=== PATIENT | male | born 1955 | race Caucasian/White ===

== ENCOUNTER → 2019-06-29 16:15 | Outpatient (BNVA) | payer MEDICARE, SELFPAY | PROVIDERS: Family Provider Nurse Practitioner Family; PCP Nurse Practitioner Family; Visit Provider Nurse Practitioner Family | DX: I10 Essential (primary) hypertension (principal); E78.2 Mixed hyperlipidemia; M19.90 Unspecified osteoarthritis, unspecified site; E55.9 Vitamin D deficiency, unspecified | CPT/HCPCS: 80053; 80061; 82306; 85025 ==

== ENCOUNTER → 2019-07-21 16:11 | Outpatient (BNVA) | payer MEDICARE, SELFPAY | PROVIDERS: Family Provider Nurse Practitioner Family; PCP Nurse Practitioner Family; Visit Provider Nurse Practitioner Family | DX: I10 Essential (primary) hypertension (principal); R73.09 Other abnormal glucose; F41.9 Anxiety disorder, unspecified | CPT/HCPCS: 83036 ==

== ENCOUNTER → 2020-01-27 13:27 | Outpatient (BNVA) | payer MEDICARE, SELFPAY | PROVIDERS: Family Provider Nurse Practitioner Family; PCP Nurse Practitioner Family; Visit Provider Nurse Practitioner Family | DX: I10 Essential (primary) hypertension (principal); E55.9 Vitamin D deficiency, unspecified; F41.9 Anxiety disorder, unspecified; E34.9 Endocrine disorder, unspecified; R73.09 Other abnormal glucose | CPT/HCPCS: 80053; 80061; 82306; 82607; 83036; 84403; 84443; 85025 ==

== ENCOUNTER → 2020-03-21 12:54 | Outpatient (BNVA) | payer MEDICARE, SELFPAY | PROVIDERS: Family Provider Nurse Practitioner Family; PCP Nurse Practitioner Family; Referring Provider Nurse Practitioner Family; Visit Provider Dermatology | DX: D48.5 Neoplasm of uncertain behavior of skin (principal); L70.8 Other acne; L72.0 Epidermal cyst; L82.1 Other seborrheic keratosis; F17.220 Nicotine dependence, chewing tobacco, uncomplicated | CPT/HCPCS: 11102; 88304; 99203 ==

== ENCOUNTER → 2020-09-07 11:46 | Outpatient (BNVA) | payer MEDICARE, SELFPAY | PROVIDERS: Family Provider Nurse Practitioner Family; PCP Nurse Practitioner Family; Visit Provider Nurse Practitioner Family | DX: I10 Essential (primary) hypertension (principal); E55.9 Vitamin D deficiency, unspecified; F41.9 Anxiety disorder, unspecified; R73.03 Prediabetes; R73.09 Other abnormal glucose; E34.9 Endocrine disorder, unspecified | CPT/HCPCS: 80053; 80061; 82043; 82306; 83036; 84403; 85025 ==

== ENCOUNTER → 2021-02-15 10:00 | Outpatient (BNVA) | payer MEDICARE, SELFPAY | PROVIDERS: Family Provider Nurse Practitioner Family; PCP Nurse Practitioner Family; Visit Provider Nurse Practitioner Family | DX: F41.9 Anxiety disorder, unspecified (principal); I10 Essential (primary) hypertension; R73.03 Prediabetes; E34.9 Endocrine disorder, unspecified; E55.9 Vitamin D deficiency, unspecified; E78.5 Hyperlipidemia, unspecified | CPT/HCPCS: 80053; 80061; 82306; 82607; 83036; 84403; 85025 ==

== ENCOUNTER → 2021-07-17 15:39 | Outpatient (BNVA) | payer MEDICARE, SELFPAY | PROVIDERS: Family Provider Nurse Practitioner Family; PCP Nurse Practitioner Family; Visit Provider Nurse Practitioner Family | DX: Z20.822 Contact with and (suspected) exposure to COVID-19 (principal) | CPT/HCPCS: 87635 ==

== ENCOUNTER → 2022-03-10 17:10 | Outpatient (BNVA) | payer MEDICARE, SELFPAY | PROVIDERS: Family Provider Nurse Practitioner Family; PCP Nurse Practitioner Family; Visit Provider Nurse Practitioner Family | DX: I10 Essential (primary) hypertension (principal); E78.5 Hyperlipidemia, unspecified; K21.9 Gastro-esophageal reflux disease without esophagitis; R73.09 Other abnormal glucose; E34.9 Endocrine disorder, unspecified; E55.9 Vitamin D deficiency, unspecified; R63.4 Abnormal weight loss; R73.03 Prediabetes; M54.42 Lumbago with sciatica, left side; G89.29 Other chronic pain; J34.89 Other specified disorders of nose and nasal sinuses; N40.0 Benign prostatic hyperplasia without lower urinary tract symptoms | CPT/HCPCS: 80053; 80061; 82306; 82607; 83036; 83735; 84403; 84443; 85025 ==

== ENCOUNTER 2022-04-04 08:11 | Outpatient (CLI) | payer MEDICARE, SELFPAY ==
[2022-04-04] MEDS: iohexol 350 mg/mL 100 mL Btl PO (08:40)
[2022-04-04] MEDS: iohexol 350 mg/mL 100 mL Btl IV (08:42)
--- NOTE | 2022-04-04 09:30 | CT_ITS ---
WS: [id number] CT CHEST, ABDOMEN AND PELVIS WITH CONTRAST HISTORY: R63.4 - Abnormal weight loss TECHNIQUE: Contiguous 5 mm axial imaging performed through the chest, abdomen and pelvis with IV cont rast, oral contrast has been provided. Coronal and sagittal reformats chest. Coronal and sagittal ref ormats through the abdomen and pelvis. All CT scans at [facility] use at least one of these d ose optimization techniques: automated exposure control; mA and/or kV adjustment per patient size (in cludes targeted exams where dose is matched to clinical indication); or iterative reconstruction. CONTRAST: Omnipaque 350; 95 mL IV. DLP: 2217.88 mGy.cm COMPARISON: 12/10/[address]: Focal pleural scarring towards the apices. There is a micronodule measuring 2 mm LEFT upper lobe, image 25 of series 4. No mass or nodule or pneumonia. No pericardial or pleural effusions. No axillary, mediastinal or hilar lymphadenopathy. Mild atherosclerosis aorta. Normal size pulmonary art hernan. Small hiatal hernia. Mild soft tissue thickening at the GE junction. Nonspecific. Abdomen CT: Prior cholecystectomy. Liver is normal size. Mild central bile duct dilatation is probably on the basis of the cholecystectomy. No mass at the moore creatic head. Mild atrophy of the pancreas. Pancreatic duct is not dilated. Negative spleen and adren al glands. Bilateral renal hypodensities are too small to characterize. No solid renal mass. Bilatera l nonobstructing renal calculi. Mild atherosclerosis aorta. Minimally distended stomach with contrast. No small bowel obstruction or wall thickening. There is mi ld diffuse fecal constipation. No obstructing colon lesion is identified. The appendix is normal. Pelvic CT: No free fluid in the pelvis. The urinary bladder is well distended. Focal dilatation invol ving the distal LEFT ureter or bladder diverticulum. The ureter may enter the bladder diverticulum. N o enhancing masses within the bladder. Prostate gland is enlarged. There is a central low attenuation mass measuring 2.7 x 2.2 cm in the prostate gland. This was previously described in 2017 but increas ed in size. May be part of the prosthetic urethra. No osteoblastic or osteolytic bone lesions. Mild thoracolumbar scoliosis. Slight anterior wedging of L2. CT/CT chest abd pel w con* IMPRESSION: 1. No pulmonary mass or lymphadenopathy within the thorax. 2. Prior cholecystectomy. Very minimal bile duct dilatation is probably relate d to cholecystectomy. No pancreatic mass. 3. No ascites or adenopathy in the abdomen or pelvis. 4. No GI tract obstruction, mild diffuse constipation. 5. Cystic mass in the central prostate may be a prosthetic cyst or dilated pro static urethra. Prostate gland is enlarged. This cyst was present in 2017 but i ncreased slightly in size.
== END 2022-04-04 08:12 | disposition home or self-care (01) ==
PROVIDERS: Family Provider Nurse Practitioner Family; PCP Nurse Practitioner Family; Visit Provider Nurse Practitioner Family
DX: R63.4 Abnormal weight loss (principal); K59.00 Constipation, unspecified; N40.0 Benign prostatic hyperplasia without lower urinary tract symptoms; Z90.49 Acquired absence of other specified parts of digestive tract
CPT/HCPCS: 71260; 74177

== ENCOUNTER 2022-06-19 14:48 | Outpatient (CLI) | payer MEDICARE, SELFPAY ==
[2022-06-19 16:02] LABS: PSA Screen - Urology 1.95 ng/mL (0-4)
== END 2022-06-19 14:49 | disposition home or self-care (01) ==
LOC: LAB 14:49
PROVIDERS: Family Provider Nurse Practitioner Family; PCP Nurse Practitioner Family; Visit Provider Urology
DX: Z12.5 Encounter for screening for malignant neoplasm of prostate (principal); N42.83 Cyst of prostate; N40.1 Benign prostatic hyperplasia with lower urinary tract symptoms; N13.8 Other obstructive and reflux uropathy; K59.09 Other constipation
CPT/HCPCS: 51741; 51798; 81003; 99203; G0103

== ENCOUNTER 2022-10-06 16:47 | Outpatient (CLI) | payer MEDICARE, SELFPAY ==
--- NOTE | 2022-10-06 | XR_ITS ---
WS: [id number] Lumbar spine with flexion, extension, and neutral lateral, 10/06/2022 Clinical Data: VERTEBROGENIC LOW PBACK PAIN Comparison: None. Findings: No compression fractures or subluxation is seen. There is degenerative disc narrowing at all lumbar l evels except L3-L4.. No limitation of motion or subluxation is seen. Diffuse osteoporosis is present. There is calcification of the wall of the abdominal aorta but no ane urysm. XR/XR lumbar spine f/e only [id number] Impression: 1. Multilevel degenerative disc narrowing. 2. Negative for limitation of motion on flexion or extension. 3. Osteoporosis.
== END 2022-10-06 16:48 | disposition home or self-care (01) ==
PROVIDERS: PCP Nurse Practitioner Family; Visit Provider Anesthesiology Pain Medicine
DX: M54.50 Low back pain, unspecified (principal)
CPT/HCPCS: 72120

== ENCOUNTER 2022-10-24 11:54 | Outpatient (CLI) | payer MEDICARE, SELFPAY ==
--- NOTE | 2022-10-24 12:20 | CT_ITS ---
WS: [id number] CT LUMBAR SPINE TECHNIQUE: Noncontrast CT of the lumbar spine with coronal and sagittal reformatted images. CLINICAL INFORMATION: VERTEBROGENIC LOW BACK PAIN COMPARISON: None. DLP: 496.[address] scans at [facility] use at least one of these dose optimization techniques: automated e xposure control; mA and/or kV adjustment per patient size (includes targeted exams where dose is matc hed to clinical indication); or iterative reconstruction. FINDINGS: Mild lumbar curve. Moderate spondylitic changes. Disc space narrowing worse at L2-L3 with disc desicc ation. Mild compression deformity superior endplate L2 unchanged since April 04, 2022. Grade 1 ante rolisthesis L5 on S1 with chronic spondylolysis.. L1-L2: Mild disc osteophytic ridging. Mild bilateral foraminal narrowing. Moderate facet arthropathy. Spinal canal is patent. L2-L3: Disc desiccation. Moderate facet arthropathy. Spinal canal and foramen are patent. L3-L4: Minimal disc bulging. Moderate facet arthropathy. Mild RIGHT and no significant LEFT foraminal narrowing. L4-L5: Disc osteophyte complex endplate ridging. Narrowing of the RIGHT subarticular recess. Mild RIG HT and no LEFT foraminal narrowing. Moderate to advanced facet arthropathy. L5-S1: Grade 1 anterolisthesis. Disc osteophyte complex with slight effacement of ventral thecal sac. Spinal canal is patent. Foramen are patent. Moderate facet arthropathy with spondylolysis. Adrenal glands are normal. Slightly aneurysmal infrarenal abdominal aorta measuring 2.4 x 2.4 CM. Visualized pelvic bony structures: Normal. Paravertebral soft tissues: Normal. CT/CT lumbar spine wo con* [id number] IMPRESSION: 1. Mild lumbar curve. No acute compression. Chronic mild compression superior endplate L2 unchanged since April 04, 2022. 2. Grade 1 anterolisthesis L5 on S1 with chronic spondylolysis. 3. Disc osteophyte complex L4-L5 with impingement RIGHT subarticular recess an d traversing RIGHT L5 nerve root. Mild RIGHT L4-L5 foraminal narrowing. Moderat e facet arthropathy is level. 4. Mild RIGHT L3-L4 foraminal narrowing with moderate facet arthropathy. 5. Mild bilateral L1-L2 foraminal narrowing. 6. Slightly aneurysmal infrarenal abdominal aorta measuring 2.4 x 2.4 CM.
== END 2022-10-24 11:55 | disposition home or self-care (01) ==
PROVIDERS: PCP Nurse Practitioner Family; Visit Provider Nurse Practitioner
DX: M54.51 Vertebrogenic low back pain (principal); M43.8X6 Other specified deforming dorsopathies, lumbar region; M47.817 Spondylosis without myelopathy or radiculopathy, lumbosacral region; M47.816 Spondylosis without myelopathy or radiculopathy, lumbar region
CPT/HCPCS: 72131

== ENCOUNTER 2022-11-15 19:21 | Emergency (ER) | payer MEDICARE, SELFPAY ==
[2022-11-15 19:38] VITALS: BP 195/84; PULSE 82; RESP 18; TEMP 36.7; O2SAT 98; BMI 26.3
--- NOTE | 2022-11-15 19:45 | ED_ITS ---
HPI - Abdominal Pain General: Chief Complaint: Abdominal Pain Stated Complaint: left flank pain Time Seen by Provider: 11/15/22 19:32 Source: patient Mode of arrival: ambulatory Limitations: no limitations History of Present Illness: 67-year-old male states he has been having left flank pain today started suddenly states it severe in nature radiates to his groin he states he had a kidney stone 20 years ago and this feels similar he denies any worsening proving factors states pain is currently 9 out of 10 he had no nausea vomiting denies any dysuria. Associated Symptoms: Denies chills, diarrhea, dysuria, fever(s), nausea and vomiting Review of Systems Const: Denies: fever(s) or chills ENMT: Denies: throat pain or dental pain Card: Denies: chest pain Resp: Denies: dyspnea GI: Denies: abdominal pain, nausea, vomiting or diarrhea : Reports: flank pain; Denies: dysuria Musc: Denies: neck pain or back pain Skin/Breast: Denies: rash Neuro: Denies: headache(s) PFSH ED PFSH: Medical History Anxiety B12 deficiency Chronic bilateral low back pain with left-sided sciatica Chronic constipation Chronic pain syndrome Drug-seeking behavior Dyslipidemia Gastro-esophageal reflux disease without esophagitis Helicobacter pylori antibody positive Hx of cardiac murmur Hypertension Overweight Testosterone deficiency Vitamin D deficiency Surgical History Hx of cholecystectomy Hx of colonoscopy Hx of hernia repair Family History Family/Other Dementia CAD (coronary artery disease) Cancer Mother , at age 69 Cancer Lung Father , at age 64 CAD (coronary artery disease) Social History Smoking and tobacco status: current every day smoker Second hand smoke exposure: No Alcohol intake: never Substance/Drug Use: never Caregiver/support person: Yes Lives independently: Yes Household members: spouse Marital status: Current occupational status: disabled Current gender identity: Male Special lorri needs: No Agree to transfusion: Yes Physical Exam Const: COMMON NORMALS: patient oriented x3 and healthy appearing GENERAL APPEARANCE: in distress HENMT: COMMON NORMALS: normocephalic and atraumatic HEAD & SCALP: normocephalic and atraumatic Eye: COMMON NORMALS: conjunctivae normal CONJUNCTIVA: Yes conjunctivae normal Neck/C-Spine: COMMON NORMALS: full ROM and supple Chest: COMMONS NORMALS: normal inspection of the chest and normal palpation of entire chest wall Resp: COMMON NORMALS: normal respiratory effort, No retractions, No use of accessory muscles and clear to auscultation bilaterally AUSCULTATION: clear to auscultation bilaterally Cardio: COMMON NORMALS: regular rate, regular rhythm and No murmurs present (Cardio) RATE: regular rate RHYTHM: regular rhythm GI: COMMON NORMALS: Normal to inspection, nondistended, normoactive bowel sounds present, Soft to palpation, non-tender and no masses PALPATION: Yes Soft to palpation : COMMON NORMALS: Yes no CVA tenderness BLADDER/KIDNEY EXAM: Yes no CVA tenderness Back/Pelvis: COMMON NORMALS: no CVA tenderness Extremity: COMMON NORMALS: normal to inspection and full ROM Neuro: COMMON NORMALS: patient oriented x3, moves all extremities and no focal motor deficits Psych: COMMON NORMALS: mental status grossly normal, Normal thought process present and cooperative THOUGHT PROCESS: Normal thought process present Skin: COMMON NORMALS: no rashes or lesions noted and no wounds GENERAL SKIN EXAM: no rashes or lesions noted Course Vital Signs: Vital signs: Vital Signs Temperature 98.0 F 11/15/22 19:38 Pulse Rate 68 11/15/22 22:42 Respiratory Rate 16 11/15/22 22:42 Blood Pressure 197/83 11/15/22 22:42 Pulse Oximetry 97 11/15/22 22:42 Oxygen Delivery Me thod Room Air 11/15/22 21:12 MDM - Abdominal Pain Medical Decision Making 67-year-old patient presents with flank pain he does have a kidney stone no signs of urinary tract infection pain is much improved here. We will place him on [place] along with Flomax he is to follow-up with urology he is return if worsening he understands agrees Medical Records I reviewed the patient's medical records. Lab Data I reviewed the patient's lab results. 11/15/22 19:47 11/15/22 19:47 Labs/Radiology: Radiology Impressions Abdomen/Pelvis CT 11/15/22 20:04 IMPRESSION: 1. A 5 mm partially obstructive calculus in the mid left ureter. 2. Several additional nonobstructive renal calculi as large as 4 mm. 3. A small sliding hiatal hernia. 4. Focal ectasia of the distal infrarenal abdominal aorta measuring 2.3 cm. 5. Mild fecal stasis throughout the colon. 6. Left bladder diverticulum near the ureterovesical junction. COMMENTS: Consistent with the [employer]'s Incidental Findings Committee white paper (J Am Caleb Radiol 2018): Any incidental renal lesion less than 1 cm or classified as too small to characterize, or any incidental cystic renal lesion characterized as simple-appearing, is likely benign. No follow-up imaging is recommended for these lesions per consensus recommendations based on imaging criteria. Laboratory Results WBC 17.4 10^3/uL (4.0-10.0) H 11/15/22 19:47 RBC 5.32 10^6/uL (4.1-5.3) H 11/15/22 19:47 Hgb 15.7 g/dL (11.7-16.6) 11/15/22 19:47 Hct 45.1 % (42.0-52.0) 11/15/22 19:47 MCV 84.8 fl (80-94) 11/15/22 19:47 MCH 29.5 pg (28.0-34.0) 11/15/22 19:47 MCHC 34.8 g/dL (30.0-36.0) 11/15/22 19:47 RDW 12.5 % (12.1-15.1) 11/15/22 19:47 Plt Count 337 10^3/cmm (130-400) 11/15/22 19:47 MPV 8.6 fL (7.4-10.4) 11/15/22 19:47 Neut % (Auto) 83.9 % 11/15/22 19:47 Lymph % (Auto) 7.1 % 11/15/22 19:47 [place]ble % (Auto) 6.5 % 11/15/22 19:47 Eos % (Auto) 0.1 % 11/15/22 19:47 Baso % (Auto) 0.2 % 11/15/22 19:47 Neut # (Auto) 14.56 10^3/uL (1.8-7.7) H 11/15/22 19:47 Lymph # (Auto) 1.2 10^3/uL (0.8-4.8) 11/15/22 19:47 Kimble # (Auto) 1.1 10^3/uL (0.2-0.9) H 11/15/22 19:47 Eos # (Auto) 0.0 10^3/uL (0.0-0.8) 11/15/22 19:47 Baso # (Auto) 0.0 10^3/uL (0.0-0.1) 11/15/22 19:47 Nucleated RBC % (auto) 0 % 11/15/22 19:47 Nucleated RBCs # 0.0 /100WBC 11/15/22 19:47 Sodium 135 mmol/L (136-145) L 11/15/22 19:47 Potassium 3.5 mmol/L (3.5-5.1) 11/15/22 19:47 Chloride 94 mmol/L (98-107) L 11/15/22 19:47 Carbon Dioxide 28 mmol/L (22-29) 11/15/22 19:47 Anion Gap 16.5 (5-19) 11/15/22 19:47 BUN 22 mg/dL (8-23) 11/15/22 19:47 Creatinine 1.0 mg/dL (0.7-1.2) 11/15/22 19:47 GFR Calculation 74.1 mL/min (90-130) L 11/15/22 19:47 Glucose 126 mg/dL (65-115) H 11/15/22 19:47 Calculated Osmolality 285 mOsm/kg (285-295) 11/15/22 19:47 Calcium 9.4 mg/dL (8.5-10.5) 11/15/22 19:47 Total Bilirubin 0.4 mg/dL (0.15-1.2) 11/15/22 19:47 AST 17 U/L (0-40) 11/15/22 19:47 ALT 14 U/L (0-41) 11/15/22 19:47 Alkaline Phosphatase 77 U/L (40-130) 11/15/22 19:47 Total Protein 7.4 g/dL (6.6-8.7) 11/15/22 19:47 Albumin 4.5 g/dL (3.5-5.2) 11/15/22 19:47 Globulin 2.9 g/dL (1.3-4.6) 11/15/22 19:47 Lipase 75 U/L (13-60) H 11/15/22 19:47 Urine Color Yellow (Yellow) 11/15/22 Unknown Urine Appearance Cloudy (CLEAR) A 11/15/22 Unknown Urine pH 5 (5-7) 11/15/22 Unknown Ur Specific [place] 1.025 (1.005-1.030) 11/15/22 Unknown Urine Protein 1+ (Negative) H 11/15/22 Unknown Urine Glucose (UA) Norm (Normal) 11/15/22 Unknown Urine Ketones 1+ (Negative) H 11/15/22 Unknown Urine Blood 3+ (Negative) H 11/15/22 Unknown Urine Nitrate Negative (Negative) 11/15/22 Unknown Urine Bilirubin Neg (Negative) 11/15/22 Unknown Urine Urobilinogen Norm mg/dL (Negative) 11/15/22 Unknown Ur Leukocyte Esterase Trace (Negative) H 11/15/22 Unknown Urine RBC >100 /hpf (0-2) H 11/15/22 Unknown Urine WBC 5-10 /hpf (0-5) H 11/15/22 Unknown Ur Squamous Epith Cells 0-4 /hpf (0-5) H 11/15/22 Unknown Calcium Oxalate Crystal 10-15 /hpf H 11/15/22 Unknown Amorphous Sediment Not Reportable 11/15/22 Unknown Urine Bacteria 1+ /hpf (NONE) H 11/15/22 Unknown Urine Mucus 3+ /hpf 11/15/22 Unknown Discharge Plan Discharge Patient Disposition: Home Clinical Impression: Kidney stone Condition: Stable Prescriptions: New hydrocodone-acetaminophen 5-325 mg tablet 1 tab PO Q6H PRN (Reason: pain) Qty: 14 0RF ondansetron 4 mg tablet,disintegrating 4 mg PO Q6H PRN (Reason: nausea and vomiting) Qty: 14 0RF Flomax 0.4 mg capsule 0.4 mg PO DAILY Qty: 5 0RF No Action fentanyl 100 mcg/hr patch 72 hour 1 patch TRANSDERMA Q72H cholecalciferol (vitamin D3) 25 mcg (1,000 unit) capsule 1,000 unit PO DAILY 90 Days Qty: 90 1RF lidocaine-epinephrine 1 %-1:100,000 solution 3 ml SUBCUT ONCE Qty: 3 0RF povidone-iodine [Betadine Swabsticks] 10 % swab 1 applic topical ONCE Qty: 1 0RF lidocaine (PF) 20 mg/mL (2 %) solution 20 mg IM ONCE Qty: 2 0RF oxycodone-acetaminophen [Percocet] 7.5-325 mg tablet 1 tab PO Q4H PRN albuterol sulfate [ProAir HFA] 90 mcg/actuation HFA aerosol inhaler 2 puff inhalation Q6H PRN (Reason: shortness of breath or wheezing) Qty: 8.5 0RF naloxone 0.4 mg/mL solution 0.4 mg SUBCUT Q2M PRN Rx Instructions: NTExceed 10 mg total dose/episode simvastatin 40 mg tablet See Rx Instructions .ROUTE .COMPLEX Qty: 90 1RF Dose Instruction: TAKE 1 TABLET BY MOUTH DAILY Rx Instructions: TAKE 1 TABLET BY MOUTH DAILY testosterone cypionate 100 mg/mL oil 150 mg IM .every other week Qty: 10 1RF acyclovir 200 mg capsule 200 mg PO BID PRN (Reason: blisters) 7 Days Qty: 14 2RF tamsulosin 0.4 mg capsule See Rx Instructions .ROUTE .COMPLEX Qty: 90 0RF Dose Instruction: TAKE 1 CAPSULE BY MOUTH DAILY Rx Instructions: TAKE 1 CAPSULE BY MOUTH DAILY benazepril 40 mg tablet See Rx Instructions .ROUTE .COMPLEX Qty: 30 0RF Dose Instruction: TAKE 1 TABLET BY MOUTH DAILY Rx Instructions: TAKE 1 TABLET BY MOUTH DAILY omeprazole 40 mg capsule,delayed release(DR/EC) See Rx Instructions .ROUTE .COMPLEX Qty: 90 1RF Dose Instruction: TAKE 1 CAPSULE BY MOUTH DAILY Rx Instructions: TAKE 1 CAPSULE BY MOUTH DAILY Discharge Orders: Discharge ED (Routine); Ordered 11/15/22 Ordered By: Iban Patterson Referrals: Daksha Ayala FNP [Primary Care Provider] - Discharge Diet: Advance as tolerated Discharge Activity: Resume usual activity Patient Instructions: Kidney Stones (ED), Opioid Safety Coding Level of Care Code ED Project Assistant for Carmen Trivedi
[2022-11-15 19:55] LABS: Basophils % 0.2 %; Eosinophils % 0.1 %; Hematocrit 45.1 % (42.0-52.0); Hemoglobin 15.7 g/dL (11.7-16.6); Lymphocytes # 1.2 10^3/uL (0.8-4.8); Lymphocytes % 7.1 %; Mean Corpuscular HGB Conc 34.8 g/dL (30.0-36.0); Mean Corpuscular Hemoglobin 29.5 pg (28.0-34.0); Mean Corpuscular Volume 84.8 fl (80-94); Mean Platelet Volume 8.6 fL (7.4-10.4); Monocytes # 1.1 10^3/uL (0.2-0.9); Monocytes % 6.5 %; Neutrophils # 14.56 10^3/uL (1.8-7.7); Neutrophils % 83.9 %; Nucleated Red Blood Cells % 0 %; Platelet Count 337 10^3/cmm (130-400); Red Blood Count 5.32 10^6/uL (4.1-5.3); Red Cell Distribution Width 12.5 % (12.1-15.1); White Blood Count 17.4 10^3/uL (4.0-10.0)
[2022-11-15 20:00] VITALS: PULSE 74; O2SAT 93
--- NOTE | 2022-11-15 20:04 | CTR_ITS ---
PROCEDURE INFORMATION: Exam: CT Abdomen And Pelvis With Contrast Exam date and time: 11/15/2022 8:15 PM Age: 67 years old Clinical indication: Abdominal pain; Generalized; Patient HX: Elevated wbc; Additional info: Abd pain TECHNIQUE: Imaging protocol: Computed tomography of the abdomen and pelvis with contrast. Radiation optimization: All CT scans at this facility use at least one of these dose optimization techniques: automated exposure control; mA and/or kV adjustment per patient size (includes targeted exams where dose is matched to clinical indication); or iterative reconstruction. Contrast material: OMNI 350; Contrast volume: 70 ml; Contrast route: INTRAVENOUS (IV); REPORTING DATA: Count of CT and Cardiac NM exams in prior 12 months: This patient has received 2 known CTs and 0 known cardiac nuclear medicine studies in the 12 months prior to the current study. COMPARISON: CT chest abdpel w/*[id number] 04/04/2022 9:51 AM RADIATION DOSE METRICS: Total DLP (mGy-cm): 708.84 FINDINGS: Lungs: The visualized lung bases show no consolidation. Diaphragm: There is a small sliding hiatal hernia. Liver: The liver is normal in size. There are no enhancing liver masses. Gallbladder and bile ducts: There has been a cholecystectomy. There is no evidence of biliary ductal dilation. Pancreas: The pancreas is normal. Spleen: The spleen is normal in size and density. Adrenal glands: The adrenal glands are normal. Kidneys and ureters: There is fullness of the left renal collecting system, down to the mid left ureter, where there is a partially obstructive 5 mm calculus. There are several bilateral nonobstructive renal calculi as large as 4 mm. There are multiple bilateral subcentimeter renal hypodensities, too small to characterize but likely cysts. Stomach and bowel: There is no evidence of small bowel or colonic obstruction. There is mild diffuse fecal stasis throughout the colon. Appendix: A normal appendix is identified. Intraperitoneal space: No free air. No significant fluid collection. Vasculature: There is moderate atherosclerotic calcification of the abdominal aorta and its branches. There is ectasia of the distal infrarenal abdominal aorta measuring 2.3 cm in diameter with mild mural thrombus. Lymph nodes: No enlarged retroperitoneal or mesenteric lymph nodes. Urinary bladder: The bladder is mostly decompressed. There is a bladder diverticulum at or near the left ureterovesical junction. Reproductive: Stable 2.3 cm prostate cyst. The prostate is enlarged, measuring 5.4 cm in transverse dimension. Bones/joints: No acute fracture. Mild chronic superior endplate compression fractures of L2 and L3. Soft tissues: Normal. CT/CT abdomen pelvis w con* [id number] IMPRESSION: 1. A 5 mm partially obstructive calculus in the mid left ureter. 2. Several additional nonobstructive renal calculi as large as 4 mm. 3. A small sliding hiatal hernia. 4. Focal ectasia of the distal infrarenal abdominal aorta measuring 2.3 cm. 5. Mild fecal stasis throughout the colon. 6. Left bladder diverticulum near the ureterovesical junction. COMMENTS: Consistent with the [employer]'s Incidental Findings Committee white paper (J Am Caleb Radiol 2018): Any incidental renal lesion less than 1 cm or classified as too small to characterize, or any incidental cystic renal lesion characterized as simple-appearing, is likely benign. No follow-up imaging is recommended for these lesions per consensus recommendations based on imaging criteria.
[2022-11-15] MEDS: sodium chloride 0.9% 1,000 ML 999 ML IV (20:07)
[2022-11-15] MEDS: ondansetron 2 mg/ML SDV 2 mL 4 MG IVP (20:07)
[2022-11-15] MEDS: morphine 4 mg/mL SDV 1 mL IVP (20:10)
[2022-11-15 20:17] LABS: Alanine Aminotransferase 14 U/L (0-41); Albumin Level 4.5 g/dL (3.5-5.2); Alkaline Phosphatase 77 U/L (40-130); Anion Gap 16.5 (5-19); Aspartate Amino Transferase 17 U/L (0-40); Blood Urea Nitrogen 22 mg/dL (8-23); Calcium 9.4 mg/dL (8.5-10.5); Carbon Dioxide 28 mmol/L (22-29); Chloride 94 mmol/L (98-107); Globulin 2.9 g/dL (1.3-4.6); Glomerular Filtration Rate 74.1 mL/min (90-130); Glucose 126 mg/dL (65-115); Lipase 75 U/L (13-60); Osmolality Calculated 285 mOsm/kg (285-295); Potassium 3.5 mmol/L (3.5-5.1); Sodium 135 mmol/L (136-145); Total Bilirubin 0.4 mg/dL (0.15-1.2); Total Protein 7.4 g/dL (6.6-8.7)
[2022-11-15] MEDS: iohexol 350 mg/mL 500 mL Btl (per mL) IV (20:19)
[2022-11-15 20:33] LABS: Bilirubin Urine Neg (Negative); Blood Urine 3+ (Negative); Glucose Urine UA Norm (Normal); Ketones Urine 1+ (Negative); Leukocyte Esterase Urine Trace (Negative); Nitrate Urine Negative (Negative); Protein Urine 1+ (Negative); Specific Gravity, Urine 1.025 (1.005-1.030); Urine Appearance Cloudy (CLEAR); Urine Color Yellow (Yellow); Urobilinogen Urine Norm (Negative); pH Urine 5 (5-7)
[2022-11-15 20:34] LABS: Add Urine Microscopic? YES
[2022-11-15 20:37] LABS: RBC Urine >100 /hpf (0-2)
[2022-11-15 20:38] LABS: Bacteria Urine 1+ /hpf; Squamous Epithelial Cell Urine 0-4 /hpf (0-5)
[2022-11-15 20:40] LABS: Add Urine Culture? Yes; Mucus Urine 3+ /hpf
[2022-11-15] MEDS: HYDROmorphone 1 mg/mL INJ 1 mL 0.5 MG IVP (21:10)
[2022-11-15 21:12] VITALS: BP 189/79; PULSE 85; RESP 18; O2SAT 93
--- NOTE | 2022-11-15 22:30 | PC.NURSE ---
Pt sent home with 2x tabs of Hydrocodone
[2022-11-15 22:42] VITALS: BP 197/83; PULSE 68; RESP 16; O2SAT 97
== END 2022-11-15 22:43 | disposition home or self-care (01) ==
PROVIDERS: Emergency Provider Emergency Medicine; PCP Nurse Practitioner Family
DX: N20.0 Calculus of kidney (principal); F17.210 Nicotine dependence, cigarettes, uncomplicated; E78.5 Hyperlipidemia, unspecified; I10 Essential (primary) hypertension
CPT/HCPCS: 36415; 74177; 80053; 81001; 83690; 85025; 87086; 96361; 96374; 96375; 99285; J1170; J2270; J2405; J7030; Q9967

== ENCOUNTER 2022-11-29 17:49 | Emergency (ER) | payer MEDICARE, SELFPAY ==
[2022-11-29 17:55] VITALS: BP 187/85; PULSE 80; RESP 15; TEMP 36.7; O2SAT 94
--- NOTE | 2022-11-29 18:06 | CTR_ITS ---
PROCEDURE INFORMATION: Exam: CT Abdomen And Pelvis With Contrast Exam date and time: 11/29/2022 6:36 PM Age: 67 years old Clinical indication: Abdominal pain; Acute; Prior surgery; Surgery date: 6+ months; Surgery type: Cholecystectomy, hernia repair; Additional info: Abd pain TECHNIQUE: Imaging protocol: Computed tomography of the abdomen and pelvis with contrast. Radiation optimization: All CT scans at this facility use at least one of these dose optimization techniques: automated exposure control; mA and/or kV adjustment per patient size (includes targeted exams where dose is matched to clinical indication); or iterative reconstruction. Contrast material: OMNI 350; Contrast volume: 75 ml; Contrast route: INTRAVENOUS (IV); REPORTING DATA: Count of CT and Cardiac NM exams in prior 12 months: This patient has received 3 known CTs and 0 known cardiac nuclear medicine studies in the 12 months prior to the current study. COMPARISON: CT abdomen pelvis w con* [id number] 11/15/2022 8:15 PM RADIATION DOSE METRICS: Total DLP (mGy-cm): 665.39 FINDINGS: Liver: Liver normal in size. There is an ill-defined hypodense lesion in the inferior right hepatic lobe measuring 13 mm, series 4, image 25 with probable thin rim enhancement which was not seen on the prior exam and is suspicious for a new focal hepatic lesion. The left hepatic lobe parenchyma is also slightly heterogeneous with a new discrete mass at the lateral margin of left lobe extending into the gastrohepatic space, measuring 3 by 2 cm. No history of malignancy was provided. Gallbladder and bile ducts: Prior cholecystectomy. No abnormal bile duct dilatation. Pancreas: Soft tissue stranding within the gastro pancreatic space new since prior exam. No discrete regional drainable fluid collection is otherwise identified. The pancreas otherwise is normal in size and contour with no ductal dilatation, obvious discrete mass or ductal dilatation. Spleen: Normal. No splenomegaly. Adrenal glands: Subtle small nodular thickening of the left adrenal gland measuring 12 mm, new since prior exam. Kidneys and ureters: Nonobstructing bilateral punctate renal calculi measuring up to 2-3 mm on the left and 1-2 mm on the right. There is a calculus in the left UVJ region, measuring about 5 x 3 by 4 mm with mild hydroureter and mild left hydronephrosis. This is probably the previously noted left mid ureteral calculus which has migrated more distally. There is slightly delayed left nephrogram. No regional fluid collection. Again seen is small focal left distal ureteral dilatation versus small left UVJ region diverticulum/Hutch diverticulum measuring about 17 by 12 mm, as noted on prior exam. Stomach and bowel: Unremarkable. No obstruction. No mucosal thickening. Moderate stool burden. Appendix: No evidence of appendicitis. Intraperitoneal space: Trace perihepatic ascites. No free air. Small amount of non loculated low-density pelvic fluid with no enhancing rim, new since prior exam. Vasculature: Minimal focal ectasia of the distal infrarenal aorta measuring maximally 2.3 cm. Suprarenal aorta measures 2 cm. There is a small amount of intraluminal thrombus and partially calcified plaque throughout the aortoiliac segments. No dissection. Lymph nodes: No enlarged lymph nodes. Urinary bladder: Bladder is suboptimally assessed due to incomplete distention Reproductive: Stable minimal prostate enlargement. A midline low-density prostate lesion is again noted, measuring 2.2 by 1.8 cm cross-section, unchanged. This is nonspecific but may represent a benign utricle cyst. Other prostate neoplasm can not be totally excluded. This was reportedly stable on prior CT report versus March 2022 and is likely benign. Bones/joints: No acute fracture. Soft tissues: Prior hernia repair. No acute soft tissue findings otherwise. Stable small fat-containing umbilical hernia. CT/CT abdomen pelvis w con* [id number] IMPRESSION: 1. Comparison CT 11/15/2022. 2. New soft tissue stranding in the gastro pancreatic space. No other obvious imaging signs of acute pancreatitis or regional fluid collection. However correlation with pancreatic enzyme should be obtained. No pancreatic ductal or biliary ductal dilatation. 3. New solid appearing mass at the lateral margin of left hepatic lobe extending into the gastrohepatic space. Another probable ill-defined hypodense right hepatic lobe lesion is present, probably new since prior exam. Trace perihepatic ascites and small amount of pelvic fluid. These findings are somewhat suspicious for malignant neoplasm. However acute infectious/inflammatory process may also be considered. 4. New nodular thickening of left adrenal gland which may represent a metastatic focus. 5. Interval distal migration of the left ureteral calculus which is now in the UVJ region. There is mild hydronephrosis and hydroureter. 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 6. Stable prostate and other nonacute findings as above.
--- NOTE | 2022-11-29 18:08 | ED_ITS ---
HPI - Abdominal Pain General: Chief Complaint: Abdominal Pain Stated Complaint: abd pain, bloated Time Seen by Provider: 11/29/22 18:01 Source: patient Mode of arrival: ambulatory Limitations: no limitations History of Present Illness: 67-year-old male who states that he was diagnosed with a kidney stone 2 weeks ago he states he felt like he has not passed he had increasing pain. States his pain is now diffuse in nature he feels like he is very bloated as well. He rates his pain 8 out of 10 he has had a hard time eating due to the pain. Denies any fever denies any diarrhea denies any vomiting has had some nausea Associated Symptoms: Denies chills, diarrhea, fever(s), nausea and vomiting Review of Systems Const: Denies: fever(s) or chills ENMT: Denies: throat pain or dental pain Card: Denies: chest pain Resp: Denies: dyspnea GI: Reports: abdominal pain; Denies: nausea, vomiting or diarrhea Musc: Denies: neck pain or back pain Skin/Breast: Denies: rash Neuro: Denies: headache(s) PFSH ED PFSH: Medical History Anxiety B12 deficiency Chronic bilateral low back pain with left-sided sciatica Chronic constipation Chronic pain syndrome Drug-seeking behavior Dyslipidemia Gastro-esophageal reflux disease without esophagitis Helicobacter pylori antibody positive Hx of cardiac murmur Hypertension Overweight Testosterone deficiency Vitamin D deficiency Surgical History Hx of cholecystectomy Hx of colonoscopy Hx of hernia repair Family History Family/Other Dementia CAD (coronary artery disease) Cancer Mother , at age 69 Cancer Lung Father , at age 64 CAD (coronary artery disease) Social History Smoking and tobacco status: current every day smoker Second hand smoke exposure: No Alcohol intake: never Substance/Drug Use: never Caregiver/support person: Yes Lives independently: Yes Household members: spouse Marital status: Current occupational status: disabled Current gender identity: Male Special lorri needs: No Agree to transfusion: Yes Physical Exam Const: COMMON NORMALS: no acute distress, patient oriented x3 and healthy appearing HENMT: COMMON NORMALS: normocephalic and atraumatic HEAD & SCALP: normocep halic and atraumatic Neck/C-Spine: COMMON NORMALS: full ROM and supple Chest: COMMONS NORMALS: normal inspection of the chest and normal palpation of entire chest wall Resp: COMMON NORMALS: normal respiratory effort, No retractions, No use of accessory muscles and clear to auscultation bilaterally AUSCULTATION: clear to auscultation bilaterally Cardio: COMMON NORMALS: regular rate, regular rhythm and No murmurs present (Cardio) RATE: regular rate RHYTHM: regular rhythm GI: COMMON NORMALS: Soft to palpation and no masses PALPATION: Yes Soft to palpation OTHER: diffuse tenderness Extremity: COMMON NORMALS: normal to inspection and full ROM Neuro: COMMON NORMALS: patient oriented x3, moves all extremities and no focal motor deficits Psych: COMMON NORMALS: mental status grossly normal, Normal thought process present and cooperative THOUGHT PROCESS: Normal thought process present Skin: COMMON NORMALS: no rashes or lesions noted and no wounds GENERAL SKIN EXAM: no rashes or lesions noted Course Vital Signs: Vital signs: Vital Signs Temperature 98.0 F 11/29/22 17:55 Pulse Rate 70 11/30/22 00:05 Respiratory Rate 16 11/30/22 00:05 Blood Pressure 180/113 11/30/22 00:05 Pulse Oximetry 91 11/30/22 00:05 Oxygen Delivery Me thod Room Air 11/30/22 00:05 MDM - Abdominal Pain Medical Decision Making Patient presents here with abdominal pain he does still have the kidney stone he also has a pancreatitis CT showed a liver mass. He is hypokalemic as well his potassium here is improved I spoke to hospitalist at [facility] will transfer there for higher level of care as we do not have GI or urology at this time Lab Data I reviewed the patient's lab results. 11/29/22 18:21 11/29/22 23:20 Labs/Radiology: Radiology Impressions Abdomen/Pelvis CT 11/29/22 18:06 IMPRESSION: 1. Comparison CT 11/15/2022. 2. New soft tissue stranding in the gastro pancreatic space. No other obvious imaging signs of acute pancreatitis or regional fluid collection. However correlation with pancreatic enzyme should be obtained. No pancreatic ductal or biliary ductal dilatation. 3. New solid appearing mass at the lateral margin of left hepatic lobe extending into the gastrohepatic space. Another probable ill-defined hypodense right hepatic lobe lesion is present, probably new since prior exam. Trace perihepatic ascites and small amount of pelvic fluid. These findings are somewhat suspicious for malignant neoplasm. However acute infectious/inflammatory process may also be considered. 4. New nodular thickening of left adrenal gland which may represent a metastatic focus. 5. Interval distal migration of the left ureteral calculus which is now in the UVJ region. There is mild hydronephrosis and hydroureter. 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 6. Stable prostate and other nonacute findings as above. Chest X-Ray 11/29/22 19:14 IMPRESSION: 1. Right midlung patchy opacity as described. 2. Other findings as above. Laboratory Results WBC 18.3 10^3/uL (4.0-10.0) H 11/29/22 18:21 RBC 5.32 10^6/uL (4.1-5.3) H 11/29/22 18:21 Hgb 15.8 g/dL (11.7-16.6) 11/29/22 18:21 Hct 45.8 % (42.0-52.0) 11/29/22 18:21 MCV 86.1 fl (80-94) 11/29/22 18:21 MCH 29.7 pg (28.0-34.0) 11/29/22 18:21 MCHC 34.5 g/dL (30.0-36.0) 11/29/22 18:21 RDW 13.1 % (12.1-15.1) 11/29/22 18:21 Plt Count 172 10^3/cmm (130-400) 11/29/22 18:21 MPV 9.6 fL (7.4-10.4) 11/29/22 18:21 Neut % (Auto) 88.1 % 11/29/22 18:21 Lymph % (Auto) 3.4 % 11/29/22 18:21 [place] % (Auto) 5.7 % 11/29/22 18:21 Eos % (Auto) 0.0 % 11/29/22 18: Baso % (Auto) 0.3 % 11/29/22 18:21 Neut # (Auto) 16.12 10^3/uL (1.8-7.7) H 11/29/22 18:21 Lymph # (Auto) 0.6 10^3/uL (0.8-4.8) L 11/29/22 18:21 [place] # (Auto) 1.1 10^3/uL (0.2-0.9) H 11/29/22 18:21 Eos # (Auto) 0.0 10^3/uL (0.0-0.8) 11/29/22 18:21 Baso # (Auto) 0.1 10^3/uL (0.0-0.1) 11/29/22 18:21 Nucleated RBC % (auto) 0 % 11/29/22 18:21 Nucleated RBCs # 0.0 /100WBC 11/29/22 18:21 Sodium 133 mmol/L (136-145) L 11/29/22 18:21 Potassium 3.3 mmol/L (3.5-5.1) L 11/29/22 23:20 Chloride 85 mmol/L (98-107) L 11/29/22 18:21 Carbon Dioxide 37 mmol/L (22-29) H 11/29/22 18:21 Anion Gap 13.2 (5-19) 11/29/22 18:21 BUN 29 mg/dL (8-23) H 11/29/22 18:21 Creatinine 0.9 mg/dL (0.7-1.2) 11/29/22 18:21 GFR Calculation 83.7 mL/min (90-130) L 11/29/22 18:21 Glucose 117 mg/dL (65-115) H 11/29/22 18:21 Calculated Osmolality 283 mOsm/kg (285-295) L 11/29/22 18:21 Lactic Acid 1.9 mmol/L (0.5-2.2) 11/29/22 18:21 Calcium 8.9 mg/dL (8.5-10.5) 11/29/22 18:21 Magnesium 2.0 mg/dL (1.7-2.3) 11/29/22 19:10 Total Bilirubin 1.5 mg/dL (0.15-1.2) H 11/29/22 18:21 AST 51 U/L (0-40) H 11/29/22 18:21 ALT 65 U/L (0-41) H 11/29/22 18:21 Alkaline Phosphatase 68 U/L (40-130) 11/29/22 18:21 Total Protein 6.5 g/dL (6.6-8.7) L 11/29/22 18:21 Albumin 4.1 g/dL (3.5-5.2) 11/29/22 18: Globulin 2.4 g/dL (1.3-4.6) 11/29/22 18: Lipase > 3359 U/L (13-60) H 11/29/22 18:21 Urine Color Yellow (Yellow) 11/29/22 18:10 Urine Appearance Cloudy (CLEAR) A 11/29/22 18: Urine pH 6.5 (5-7) 11/29/22 18:10 Ur Specific [place] 1.015 (1.005-1.030) 11/29/22 18:10 Urine Protein 1+ (Negative) H 11/29/22 18:10 Urine Glucose (UA) Norm (Normal) 11/29/22 18:10 Urine Ketones Negative (Negative) 11/29/22 18:10 Urine Blood 3+ (Negative) H 11/29/22 18:10 Urine Nitrate Negative (Negative) 11/29/22 18:10 Urine Bilirubin 1+ (Negative) H 11/29/22 18:10 Urine Urobilinogen 4 mg/dL (Negative) H 11/29/22 18:10 Ur Leukocyte Esterase Negative (Negative) 11/29/22 18:10 Urine RBC 25-40 /hpf (0-2) H 11/29/22 18:10 Urine WBC 5-10 /hpf (0-5) H 11/29/22 18:10 Ur Squamous Epith Cells 0-4 /hpf (0-5) H 11/29/22 18:10 Amorphous Sediment Not Reportable 11/29/22 18:10 Urine Bacteria Trace /hpf (NONE) 11/29/22 18:10 Critical Care Time Critical Care Time: Critical Care Time: Yes Total Critical Care Time: 50 Attestation: The high probability of a clinically significant, sudden or life threatening deterioration of the patient's gi system(s) required my full and direct attention, intervention and personal management. The critical care time is as shown. This time is in addition to time spent performing any reported procedures but includes the following: [x] Data and vital sign review and interpretation [x] Patient assessment, examination and intervention [x] Documentation [x] Medication orders and management Discharge Plan Discharge Patient Disposition: Xfer Short-Term Hosp Clinical Impression: Pancreatitis, Kidney stone, Liver mass, Hypokalemia Condition: Stable Prescriptions: No Action fentanyl 100 mcg/hr patch 72 hour 1 patch TRANSDERMA Q72H cholecalciferol (vitamin D3) 25 mcg (1,000 unit) capsule 1,000 unit PO DAILY 90 Days Qty: 90 1RF lidocaine-epinephrine 1 %-1:100,000 solution 3 ml SUBCUT ONCE Qty: 3 0RF povidone-iodine [Betadine Swabsticks] 10 % swab 1 applic topical ONCE Qty: 1 0RF lidocaine (PF) 20 mg/mL (2 %) solution 20 mg IM ONCE Qty: 2 0RF oxycodone-acetaminophen [Percocet] 7.5-325 mg tablet 1 tab PO Q4H PRN albuterol sulfate [ProAir HFA] 90 mcg/actuation HFA aerosol inhaler 2 puff inhalation Q6H PRN (Reason: shortness of breath or wheezing) Qty: 8.5 0RF naloxone 0.4 mg/mL solution 0.4 mg SUBCUT Q2M PRN Rx Instructions: NTExceed 10 mg total dose/episode simvastatin 40 mg tablet See Rx Instructions .ROUTE .COMPLEX Qty: 90 1RF Dose Instruction: TAKE 1 TABLET BY MOUTH DAILY Rx Instructions: TAKE 1 TABLET BY MOUTH DAILY testosterone cypionate 100 mg/mL oil 150 mg IM .every other week Qty: 10 1RF acyclovir 200 mg capsule 200 mg PO BID PRN (Reason: blisters) 7 Days Qty: 14 2RF tamsulosin 0.4 mg capsule See Rx Instructions .ROUTE .COMPLEX Qty: 90 0RF Dose Instruction: TAKE 1 CAPSULE BY MOUTH DAILY Rx Instructions: TAKE 1 CAPSULE BY MOUTH DAILY benazepril 40 mg tablet See Rx Instructions .ROUTE .COMPLEX Qty: 30 0RF Dose Instruction: TAKE 1 TABLET BY MOUTH DAILY Rx Instructions: TAKE 1 TABLET BY MOUTH DAILY omeprazole 40 mg capsule,delayed release(DR/EC) See Rx Instructions .ROUTE .COMPLEX Qty: 90 1RF Dose Instruction: TAKE 1 CAPSULE BY MOUTH DAILY Rx Instructions: TAKE 1 CAPSULE BY MOUTH DAILY hydrocodone-acetaminophen 5-325 mg tablet 1 tab PO Q6H PRN (Reason: pain) Qty: 14 0RF ondansetron 4 mg tablet,disintegrating 4 mg PO Q6H PRN (Reason: nausea and vomiting) Qty: 14 0RF Flomax 0.4 mg capsule 0.4 mg PO DAILY Qty: 5 0RF Referrals: Daksha Ayala FNP [Primary Care Provider] - Coding Level of Care Code ED [facility] Stitcher for Carmen Trivedi
[2022-11-29 18:29] VITALS: RESP 14; O2SAT 92
[2022-11-29] MEDS: morphine 4 mg/mL SDV 1 mL IVP (18:29)
[2022-11-29] MEDS: ondansetron 2 mg/ML SDV 2 mL 4 MG IVP (18:29)
[2022-11-29] MEDS: iohexol 350 mg/mL 500 mL Btl (per mL) IV (18:39)
[2022-11-29 18:41] LABS: Add Urine Microscopic? YES; Bilirubin Urine 1+ (Negative); Blood Urine 3+ (Negative); Glucose Urine UA Norm (Normal); Ketones Urine Negative (Negative); Leukocyte Esterase Urine Negative (Negative); Nitrate Urine Negative (Negative); Protein Urine 1+ (Negative); Specific Gravity, Urine 1.015 (1.005-1.030); Urine Appearance Cloudy (CLEAR); Urine Color Yellow (Yellow); Urobilinogen Urine 4 mg/dL (Negative); pH Urine 6.5 (5-7)
[2022-11-29 18:43] LABS: Bacteria Urine TRACE /hpf; RBC Urine 25-40 /hpf (0-2); Squamous Epithelial Cell Urine 0-4 /hpf (0-5)
[2022-11-29 18:44] LABS: Add Urine Culture? Yes
[2022-11-29 18:51] LABS: Alanine Aminotransferase 65 U/L (0-41); Albumin Level 4.1 g/dL (3.5-5.2); Alkaline Phosphatase 68 U/L (40-130); Anion Gap 13.2 (5-19); Aspartate Amino Transferase 51 U/L (0-40); Blood Urea Nitrogen 29 mg/dL (8-23); Calcium 8.9 mg/dL (8.5-10.5); Carbon Dioxide 37 mmol/L (22-29); Chloride 85 mmol/L (98-107); Globulin 2.4 g/dL (1.3-4.6); Glomerular Filtration Rate 83.7 mL/min (90-130); Glucose 117 mg/dL (65-115); Osmolality Calculated 283 mOsm/kg (285-295); Sodium 133 mmol/L (136-145); Total Bilirubin 1.5 mg/dL (0.15-1.2); Total Protein 6.5 g/dL (6.6-8.7)
[2022-11-29 18:52] LABS: Lactic Sepsis W/Reflex 1.9 mmol/L (0.5-2.2); Potassium 2.2 mmol/L (3.5-5.1)
--- NOTE | 2022-11-29 18:56 | PC.NURSE ---
REPORT GIVEN TO ALEC RN ASSUMED CARE.
--- NOTE | 2022-11-29 19:14 | XRR_ITS ---
PROCEDURE INFORMATION: Exam: XR Chest Exam date and time: 11/29/2022 7:33 PM Age: 67 years old Clinical indication: Other: Hypertension; Additional info: HTN TECHNIQUE: Imaging protocol: Radiologic exam of the chest. Views: 1 view. COMPARISON: CT chest abdpel w/*[id number] 04/04/2022 9:51 AM FINDINGS: Lungs: The lung bases are suboptimally assessed due to technique however the upper lungs are clear of focal consolidation. The lung bases are suboptimally assessed otherwise. Pleural spaces: Unremarkable. No pleural effusion. No pneumothorax. Heart/Mediastinum: Cardiac silhouette appears normal in size. No obvious vascular congestion. Slightly prominent superior mediastinal contour may be related to positioning. Follow-up upright PA lateral view with proper positioning may be obtained if clinically indicated. Bones/joints: No acute osseous findings. Other findings: Single view was submitted. XR/XR chest 1V portable [id number] IMPRESSION: 1. Right midlung patchy opacity as described. 2. Other findings as above.
[2022-11-29 19:20] LABS: Basophils # 0.1 10^3/uL (0.0-0.1); Basophils % 0.3 %; Hematocrit 45.8 % (42.0-52.0); Hemoglobin 15.8 g/dL (11.7-16.6); Lymphocytes # 0.6 10^3/uL (0.8-4.8); Lymphocytes % 3.4 %; Mean Corpuscular HGB Conc 34.5 g/dL (30.0-36.0); Mean Corpuscular Hemoglobin 29.7 pg (28.0-34.0); Mean Corpuscular Volume 86.1 fl (80-94); Mean Platelet Volume 9.6 fL (7.4-10.4); Monocytes # 1.1 10^3/uL (0.2-0.9); Monocytes % 5.7 %; Neutrophils # 16.12 10^3/uL (1.8-7.7); Neutrophils % 88.1 %; Nucleated Red Blood Cells % 0 %; Platelet Count 172 10^3/cmm (130-400); Red Blood Count 5.32 10^6/uL (4.1-5.3); Red Cell Distribution Width 13.1 % (12.1-15.1); White Blood Count 18.3 10^3/uL (4.0-10.0)
[2022-11-29] MEDS: hyDRALAzine 20 mg/mL INJ 1 mL 10 MG IVP (19:28)
[2022-11-29 19:41] LABS: Potassium 2.2 mmol/L (3.5-5.1)
--- NOTE | 2022-11-29 20:35 | ECG_ITS ---
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 Measurements Intervals [place] Rate: 88 P: 65 AL: 147 QRS: -12 QRSD: 100 T: -11 QT: 304 QTc: 369 Interpretive Statements SINUS RHYTHM WITH OCCASIONAL VENTRICULAR PREMATURE COMPLEXES POSSIBLE LEFT ATRIAL ENLARGEMENT [-0.1mV P-WAVE IN V1/V2] INCOMPLETE RIGHT BUNDLE BRANCH BLOCK [90+ ms QRS DURATION, TERMINAL R IN V1/V2, 40+ ms S IN I/aVL/V4/V5/V6] SEPTAL MYOCARDIAL INFARCTION , PROBABLY OLD [40+ ms Q WAVE IN V1/V2] Compared to ECG 12/10/2016 17:50:03 Ventricular premature complex(es) now present Incomplete right bundle-branch block now present Myocardial infarct finding now present Sinus tachycardia no longer present Electronically Signed On 11-30-2022 5:33:20 CDT by Savanah Riggs M.D. [id number]
[2022-11-29] MEDS: HYDROmorphone 1 mg/mL INJ 1 mL IVP ×2 (20:40→22:27)
[2022-11-29] MEDS: potassium chloride premix 100 ML 25 MEQ IV (20:42)
[2022-11-29] MEDS: potassium chloride ER 20 mEq Tablet 40 MEQ PO ×2 (20:49)
[2022-11-29] MEDS: piperacillin-tazobactam 3.375 GM in sodium chloride 0.9% (plus) 50 ML IV (20:53)
[2022-11-29] MEDS: vancomycin 1,000 MG in sodium chloride 0.9% 250 ML 250 MG IV (21:40)
[2022-11-29 22:27] VITALS: RESP 16
[2022-11-29 23:39] LABS: Potassium 3.3 mmol/L (3.5-5.1)
[2022-11-30 00:05] VITALS: BP 180/113; PULSE 70; RESP 16; O2SAT 91
[2022-11-30] MEDS: HYDROmorphone 1 mg/mL INJ 1 mL IVP (00:45)
[2022-11-30 01:00] VITALS: BP 195/109; PULSE 73; O2SAT 88
== END 2022-11-30 01:30 | disposition short-term general hospital (02) ==
PROVIDERS: Emergency Provider Emergency Medicine; PCP Nurse Practitioner Family
DX: K85.90 Acute pancreatitis without necrosis or infection, unspecified (principal); R93.2 Abnormal findings on diagnostic imaging of liver and biliary tract; E87.6 Hypokalemia; N13.2 Hydronephrosis with renal and ureteral calculous obstruction; Z87.442 Personal history of urinary calculi
CPT/HCPCS: 36415; 71045; 74177; 80053; 81001; 83605; 83690; 83735; 84132; 85025; 87040; 87086; 93005; 96365; 96366; 96367; 96375; 96376; 99285; J0360; J1170; J2270; J2405; J2543; J3370; J3480; J7050; Q9967